=== PATIENT | female | born 1965 | race Caucasian/White ===

== ENCOUNTER → 2017-04-20 | Day surgery (SDC) | payer OTHER ==
[~2017-04-20] VITALS: Ht 167.6 cm; Wt 77.1 kg
[~2017-04-20] MED LIST: COLACE100 M1 PO; DIAZEPAM5 M1 PO; DIVIGEL1 G1; FLONASE ALLERG9.9 ML; GABAPENTIN600 M1 PO; IMITREX100 M1 PO; LEVOXYL75 MCG PO; MOVANTIK12.5 M1; NORCO 10-325 T1 EACH PO; PROAIR HFA8.5 GM INH; REQUIP0.25 MG PO; ZANTAC150 M1 PO; ZOFRAN8 M1 PO; ZYRTEC10 M3 PO
--- NOTE | 2017-04-20 09:25 | Operative Report ---
Operative/Inv Procedure Report Surgery Date: 04/20/17 Name of Procedure: Right hip arthroscopy, labral debridement, femoroplasty, loose body removal Pre-Operative Diagnosis: Right labral tear Post-Operative Diagnosis: Right hip labral tear Estimated Blood Loss: niyah Surgeon/Assayer: LIZETH PHOENIX,DANIELITO BROWN Anesthesia: general endotracheal tube Complications: None Condition: Stable to PACU Operative Indication: This is a 51-year-old female with long-standing right hip pain. She has failed conservative care. MRI showed a labral tear. Risks and benefits of the procedure were discussed with the patient at length. Risks include but are not limited to nerve damage, muscle damage, infection, blood loss, blood clots, pulmonary embolus, and even . The patient agreed to the above risks and elected to proceed with surgery. Operative/Procedure Note Note: The patient was taken to the operating room and placed supine on the operating room table. General anesthesia was induced by the anesthesia team. The patient received IV antibiotics prior to incision. A timeout was performed prior to incision. The site marking was visualized prior to the incision. The patient was positioned on the hip table and the perineum was positioned up against a well-padded post. X-rays were taken to ensure adequate positioning and distraction of the extremity. The hip was prepped and draped in the normal sterile fashion. Traction was then applied. A spinal needle was used to enter the hip joint under x-ray guidance in the lateral portal position just anterior to the greater trochanter. An air arthrogram was established. The hip joint was insufflated with saline. The spinal needle was removed from the hip joint. This allowed the spinal needle to be reinserted through the capsule while avoiding the labrum. A wire was then inserted through the spinal needle. Over the wire a cannula was inserted. The scope was then inserted and under direct visualization an anterolateral portal was then established with a spinal needle. This was made just lateral to a sagittal line drawn down from the ASIS. A [place] blade was then inserted and a capsulotomy was performed connecting the 2 portals. The capsule was debrided with a shaver. Any bleeding vessels were identified and cauterized. The diagnostic arthroscopy was then performed which showed the above findings. A loose body in the posterior aspect of the joint was removed with a grasper. There was severe tearing of the acetabular labrum. It was unstable. The tissue was friable and not amenable to repair. The shaver was used to debride the labrum from the anterior 1:30 position to the posterior 10 o'clock position. This was then further stabilized with an RF device. The traction was then let down and the hip was flexed up to 45 degrees. The 30 degree scope was then used. A more proximal portal was established with a spinal needle just proximal to the greater trochanter. A spinal needle was inserted and a wire was then shuttled through the spinal needle. An 11 blade was used to incise a skin. A dilator was then placed over the wire. The soft tissue off the superior aspect of the femoral head neck junction was then taken down. The bur was then inserted and the femoroplasty was begun proximally. X- rays were taken to ensure adequate bony resection. The camera and the bur were then switched and further femoroplasty was begun to ensure a smooth normal transition from the femoral head down to the neck. Final x-rays were taken to ensure adequate femoroplasty. The hip joint was copiously irrigated. All instruments were removed. The portal sites were closed with 3-0 nylon suture in a simple interrupted fashion and the hip joint was insufflated with 20 mL of 0.25% percent Marcaine. A dry sterile dressing was applied and the patient was transferred to PACU in stable condition. Findings: Severe macerated tear of the anterior superior labrum. Posterior labral fraying. CAM lesion present. 1 cm loose body in the posterior joint space. Grade 3 chondral changes of the central aspect of the femoral head. Acetabulum with scattered grade 2 and grade 3 chondral changes.
--- NOTE | 2017-04-20 16:17 | RADIOLOGY REPORT ---
EXAMINATION: XR HIP, RIGHT CLINICAL INFORMATION: Right hip labral repair. COMPARISON: None TECHNIQUE: Intraoperative fluoroscopic imaging of the right hip was utilized by Dr. Neal. Number of saved fluoroscopic images: 7 Fluoroscopy time: 15.9 seconds. FINDINGS: Fluoroscopic images were obtained during right hip distraction and insertion of instruments 4 performance of acetabular labral repair. Please refer to the operative report. IMPRESSION: Fluoroscopic imaging assistance was provided to the operating room.
== END ==
LOC: STS 03:04
DX: M70.61 Trochanteric bursitis, right hip (principal); M24.051 Loose body in right hip; M16.11 Unilateral primary osteoarthritis, right hip; M51.36 Other intervertebral disc degeneration, lumbar region; Z86.73 Personal history of transient ischemic attack (TIA), and cerebral infarction without residual deficits; X58.XXXA Exposure to other specified factors, initial encounter; I73.9 Peripheral vascular disease, unspecified; Z87.891 Personal history of nicotine dependence; M25.551 Pain in right hip
CPT/HCPCS: 73501; J0171; J0690; J2250; J3250